=== PATIENT | female | born 1990 ===

== ENCOUNTER 2023-04-23 05:30 | Day surgery (SDC) | payer OTHER ==
[~2023-04-23 05:30] MED LIST: NORTREL 1-35 21 EACH PO; SERTRA PO
[2023-04-23] MEDS ORDERED: KETO10TA2 PO (09:07)
[2023-04-23] MEDS ORDERED: MIRALAX17 GM PO (09:07)
[2023-04-23] MEDS ORDERED: TYLENOL ARTHRI650 MG PO (09:07)
[2023-04-23] MEDS ORDERED: TRAMADOL HCL50 MG PO (09:07)
== END 2023-04-23 12:20 | disposition home or self-care (01) ==
LOC: CIR.AMB 05:30
PROVIDERS: ATTEND Surgery
DX: K80.10 Calculus of gallbladder with chronic cholecystitis without obstruction (principal); K42.0 Umbilical hernia with obstruction, without gangrene